=== PATIENT | female | born 1980 ===

== ENCOUNTER 2020-08-25 10:41 | Outpatient (REF) | payer OTHER, SELFPAY ==
[2020-08-30 18:07] LABS: HPV mRNA E6/E7 rflx Not Detected (Not Detected)
== END 2020-08-25 10:42 | disposition home or self-care (01) ==
LOC: HO.LAB 10:41
PROVIDERS: Visit Provider Advanced Practice Midwife
DX: Z01.419 Encounter for gynecological examination (general) (routine) without abnormal findings (principal)
CPT/HCPCS: 87624; 87625; 88142